=== PATIENT | female | born 1980 | race Caucasian/White ===

== ENCOUNTER 2016-08-13 05:42 | Emergency (ER) | payer OTHER ==
[~2016-08-13] VITALS: Ht 167.6 cm; Wt 73.9 kg
[~2016-08-13 05:42] MED LIST: CLEOCIN HCL150 MG PO; MOBIC7.5 MG PO; NAPROSYN500 MG PO; TRAMADOL 50 MG50 MG PO; ZOFRAN ODT8 MG PO
[2016-08-13] MEDS ORDERED: LIORESAL 10 MG10 MG PO (06:45)
[2016-08-13] MEDS ORDERED: NORCO 5-325 TA1 EACH PO (06:45)
[2016-08-13 07:07] VITALS: BP 116/76
== END 2016-08-13 07:10 | disposition home or self-care (01) ==
LOC: ER 05:42
DX: M25.511 Pain in right shoulder (principal); Z88.5 Allergy status to narcotic agent; Z88.0 Allergy status to penicillin; Z88.8 Allergy status to other drugs, medicaments and biological substances